=== PATIENT | male | born 1980 | race Asian ===

== ENCOUNTER 2020-04-12 04:37 | Emergency (ER) | payer OTHER ==
[~2020-04-12] VITALS: Ht 175.3 cm; Wt 83.9 kg
[2020-04-12 05:24] VITALS: Ht 175.3 cm; Wt 83.9 kg
[2020-04-12 08:01] LABS: BASOPHIL % 0.5 % (0.2-1.5); PLATELET COUNT 247 x10^3mcL (152-348); RED CELL DISTRIBUTION WIDTH 13.3 % (12.1-16.2)
[2020-04-12 08:23] LABS: ALBUMIN 4.5 g/dL (3.4-5.0); ALKALINE PHOSPHATASE 132 U/L (46-116); ALT/SGPT 154 U/L (16-63); AST/SGOT 52 U/L (15-37); BILIRUBIN TOTAL 0.39 mg/dL (0.20-1.00); CALCIUM 9.4 mg/dL (8.5-10.1); CARBON DIOXIDE 26.9 mmol/L (21-32); CHLORIDE SERUM 102 mmol/L (98-107); GLUCOSE SERUM 108 mg/dL (74-106); SODIUM SERUM 140 mmol/L (136-145)
[2020-04-12 08:46] LABS: TOTAL PROTEIN, SERUM 8.4 g/dL (6.4-8.2)
[2020-04-12 08:54] LABS: CREATININE SERUM 0.9 mg/dL (0.7-1.3); GFR1 > 60 mL/min
[2020-04-12 09:38] VITALS: BP 129/89
== END 2020-04-12 09:38 | disposition home or self-care (01) ==
LOC: ED 04:37
PROVIDERS: Emergency Medicine
DX: R07.89 Other chest pain (principal); E78.00 Pure hypercholesterolemia, unspecified